=== PATIENT | female | born 1985 | race Two or more races ===

== ENCOUNTER 2017-11-17 15:13 | Emergency (ER) | payer OTHER ==
[~2017-11-17] VITALS: Ht 172.7 cm; Wt 72.6 kg
[2017-11-17] MEDS ORDERED: KEPPRA (15:20)
[2017-11-17] MEDS ORDERED: PYRI50CA PO (15:27)
[2017-11-17] MEDS ORDERED: LACO200T2 PO (15:27)
[2017-11-17] MEDS ORDERED: LEVE500T9 PO (15:27)
[2017-11-17] MEDS ORDERED: FLUO20CA36 PO (15:27)
[2017-11-17] MEDS ORDERED: FOLI1TAB16 PO (15:27)
[2017-11-17] MEDS ORDERED: ONDANSETRON 4 MG/2 ML VIAL IV ONE (16:00)
[2017-11-17] MEDS ORDERED: LORAZEPAM 2 MG/1 ML VIAL IV ONE (16:00)
[2017-11-17] MEDS ORDERED: IV NORMAL SALINE 1000 ML BAG IV ONE (16:00)
[2017-11-17] MEDS ORDERED: ONDANSETRON 4 MG/2 ML VIAL ONE (16:04)
[2017-11-17] MEDS ORDERED: LORAZEPAM 2 MG/1 ML VIAL ONE (16:05)
[2017-11-17 16:14] LABS: BASOPHILS % (AUTO) 0.2 % (0.0-2.0); EOSINOPHILS # (AUTO) 0.1 K/uL (0.0-0.7); EOSINOPHILS % (AUTO) 1.5 % (0.0-7.0); HEMATOCRIT 37.8 % (31.2-41.9); HEMOGLOBIN 12.8 g/dL (10.9-14.3); LYMPHOCYTES % (AUTO) 10.9 % (20.5-51.5); MEAN CORPUSCULAR HEMOGLOBIN 29.2 uug (24.7-32.8); MEAN CORPUSCULAR HGB CONC 34 g/dL (32.3-35.6); MEAN CORPUSCULAR VOLUME 86.3 fL (75.5-95.3); MONOCYTES # (AUTO) 0.4 K/uL (2.0-10.0); MONOCYTES % (AUTO) 4.7 % (0.0-11.0); NEUTROPHILS # (AUTO) 7.8 K/uL (1.8-8.9); NEUTROPHILS % (AUTO) 82.7 % (38.5-71.5); PLATELET COUNT (AUTO) 244 K/uL (179-408); RED BLOOD CELL COUNT(AUTO) 4.38 MIL/uL (3.63-4.92); WHITE BLOOD COUNT (AUTO) 9.5 K/uL (3.8-11.8)
[2017-11-17 16:19] LABS: CREATININE 0.9 mg/dL (0.6-1.3); POTASSIUM 4.4 mmol/L (3.5-5.1)
--- NOTE | 2017-11-17 18:42 | NUR ---
Patient discharged to home in stable conditon. Written and verbal after care instructions given. Patient verbalizes understanding of instructions.pt says feels better,ready to go home. pt accompanied by , mother and young son.
[2017-11-17 18:43] VITALS: BP 99/53
== END 2017-11-17 18:44 | disposition home or self-care (01) ==
LOC: ER 15:15
DX: G40.409 Other generalized epilepsy and epileptic syndromes, not intractable, without status epilepticus (principal); R51 Headache
CPT/HCPCS: 36415; 70450; 80048; 85025; 93005; 96374; 96375; 99285; A4663; J2060; J2405; J7030